=== PATIENT | male | born 1955 | race Caucasian/White ===

== ENCOUNTER 2017-08-22 10:45 | Inpatient (IN) | payer MEDICARE, OTHER ==
[2017-08-22] MEDS ORDERED: SODIUM CHLORIDE 0.9% 1,000 ML IV STA ×2 (11:32)
[2017-08-22] MEDS ORDERED: AZITHROMYCIN 500 MG in DEXTROSE 5% IN WATER 250 ML IVPB STA ×2 (11:32)
[2017-08-22] MEDS ORDERED: IPRATROPIUM-ALBUTEROL 3 ML NEB INHALATION STA (11:32)
--- NOTE | 2017-08-22 12:18 | ED ---
General Adult HPI - General Chief complaint: Shortness of Breath Stated complaint: Pneumonia Time Seen by Provider: 08/22/17 11:08 Source: patient, RN notes reviewed, old records reviewed Mode of arrival: ambulatory Limitations: no limitations - History of Present Illness Initial comments: This is a 62-year-old male the ER for evaluation. Presents today for evaluation regarding shortness of breath. Significant increasing shortness of breath 2 days with chronic cough. Patient states his oxygen level is low at home as he just has his oxygen is been low as 84%. Patient also having occasional pain. He has no known travel history, positive fever at home which shows. In that again significant shortness of breath. No known sick contacts again no travel history - Related Data Home Medications Medication Instructions Recorded Confirmed Atorvastatin [Lipitor] 80 mg PO HS 08/22/17 08/22/17 Carboxymethylcellulose Sodium 15 ml OP TID 08/22/17 08/22/17 [Refresh Tears] Chlorthalidone [Hygroton] 25 mg PO DAILY 08/22/17 08/22/17 Cyanocobalamin (Vitamin B-12) 5,000 mcg PO DAILY 08/22/17 08/22/17 [Vitamin B12] Cyclobenzaprine [Flexeril] 10 mg PO HS PRN 08/22/17 08/22/17 DULoxetine HCL [Cymbalta] 30 mg PO HS 08/22/17 08/22/17 Meloxicam 15 mg PO DAILY 08/22/17 08/22/17 Metaxalone [Skelaxin] 800 mg PO BID 08/22/17 08/22/17 Pantoprazole [Protonix] 40 mg PO BID 08/22/17 08/22/17 Tamsulosin [Flomax] 0.8 mg PO DAILY 08/22/17 08/22/17 cycloSPORINE 0.05% OPHTH SOLN 1 applicator BOTH EYES Q12H 08/22/17 08/22/17 [Restasis] Allergies Allergy/AdvReac Type Severity Reaction Status Date / Time No Known Allergies Allergy Verified 08/22/17 11:30 Review of Systems ROS Statement: Those systems with pertinent positive or pertinent negative responses have been documented in the HPI. ROS Other: All systems not noted in ROS Statement are negative. Past Medical History Past Medical History: Osteoarthritis (OA) Additional Past Medical History / Comment(s): ulcerative colitis enlarged prostate fx hip Past Surgical History: Orthopedic Surgery Additional Past Surgical History / Comment(s): knee x5 Past Psychological History: No Psychological Hx Reported Smoking Status: Former smoker Past Alcohol Use History: None Reported Past Drug Use History: None Reported General Exam Limitations: no limitations General appearance: alert, in no apparent distress Head exam: Present: atraumatic, normocephalic, normal inspection Eye exam: Present: normal appearance, PERRL, EOMI. Absent: scleral icterus, conjunctival injection, periorbital swelling ENT exam: Present: normal exam, mucous membranes moist Neck exam: Present: normal inspection. Absent: tenderness, meningismus, lymphadenopathy Respiratory exam: Present: normal lung sounds bilaterally, rales, rhonchi, decreased breath sounds, prolonged expiratory. Absent: respiratory distress, wheezes, stridor Cardiovascular Exam: Present: regular rate, normal rhythm, normal heart sounds. Absent: systolic murmur, diastolic murmur, rubs, gallop, clicks GI/Abdominal exam: Present: soft, normal bowel sounds. Absent: distended, tenderness, guarding, rebound, rigid Extremities exam: Present: normal inspection, full ROM, normal capillary refill. Absent: tenderness, pedal edema, joint swelling, calf tenderness Back exam: Present: normal inspection Neurological exam: Present: alert, oriented X3, CN II-XII intact Psychiatric exam: Present: normal affect, normal mood Skin exam: Present: warm, dry, intact, normal color. Absent: rash Course Vital Signs 08/22/17 08/22/17 08/22/17 11:02 12:32 12:45 Temperature 98.4 F Pulse Rate 82 76 78 Respiratory 18 Rate Blood Pressure 108/72 O2 Sat by Pulse 96 Oximetry - Reevaluation(s) Reevaluation #1: 08/22/17 13:08 Patient does complain of significant shortness of breath especially still with exertion despite breathing treatment here Medical Decision Making - Medical Decision Making 62 male the ER for evaluation, positive pneumonia. Patient be admitted for IV antibiotics, monitoring of cardiopulmonary state. - Radiology Data Radiology results: report reviewed (Chest x-ray significant for multilobar pneumonia right-sided), image reviewed Disposition Clinical Impression: Community acquired pneumonia Disposition: ADMITTED IP TO THIS HOSP Condition: Good Is patient prescribed a controlled substance at d/c from ED?: No Referrals: Low Joshua MD [Primary Care Provider] - 1-2 days
[2017-08-22] MEDS ORDERED: cefTRIAXone IN SWFI 1,000 MG/10 ML SYRINGE IVP STA (13:05)
[2017-08-22] MEDS ORDERED: PNEUMONIA PROTOCOL UTILIZED 1 EACH MISC PO PRN (13:05)
[2017-08-22 13:24] LABS: Basophils % (A) 0 %; Eosinophils % (A) 0 %; HCT 38.5 % (39.0-53.0); HGB 13.2 gm/dL (13.0-17.5); Lymphocytes % (A) 34 %; MCH 31.8 pg (25.0-35.0); MCHC 34.3 g/dL (31.0-37.0); MCV 92.6 fL (80.0-100.0); Mean Platelet Volume 6.8; Monocytes # (A) 0.6 k/uL (0-1.0); Monocytes % (A) 4 %; Neutrophils # (A) 8.2 k/uL (1.3-7.7); Neutrophils % (A) 58 %; Platelet Count 289 k/uL (150-450); RBC 4.16 m/uL (4.30-5.90); RDW 13.3 % (11.5-15.5); WBC 14.1 k/uL (3.8-10.6)
[2017-08-22 13:34] LABS: ALT 53 U/L (21-72); AST 40 U/L (17-59); Albumin 3.9 g/dL (3.5-5.0); Alkaline Phosphatase 95 U/L (38-126); Anion Gap 10 mmol/L; Blood Urea Nitrogen 8 mg/dL (9-20); Calcium 8.8 mg/dL (8.4-10.2); Carbon Dioxide 26 mmol/L (22-30); Chloride 105 mmol/L (98-107); Glucose 92 mg/dL (74-99); Magnesium 1.7 mg/dL (1.6-2.3); Sodium 141 mmol/L (137-145); Total Bilirubin 0.7 mg/dL (0.2-1.3); Total Protein 6.7 g/dL (6.3-8.2)
[2017-08-22] MEDS: SODIUM CHLORIDE 0.9% 1,000 ML IV SCH (13:44)
[2017-08-22 13:51] LABS: Lymphocytes # (A) 4.8 k/uL (1.0-4.8)
[2017-08-22 13:54] LABS: D-Dimer 1.08 mg/L FEU (<0.60); INR 1.1 (<1.2); Partial Thromboplastin Time 22.3 sec (22.0-30.0); Prothrombin Time 10.4 sec (9.0-12.0)
[2017-08-22 14:04] LABS: Creatine Kinase MB 1.2 ng/mL (0.0-2.4); Troponin I 0.013 ng/mL (0.000-0.034)
[2017-08-22] MEDS: IPRATROPIUM-ALBUTEROL 3 ML NEB INHALATION SCH ×2 (15:41→19:40)
[2017-08-22] MEDS ORDERED: CYCLOBENZAPRINE 10 MG TAB PO PRN (16:58)
[2017-08-22] MEDS ORDERED: cycloSPORINE 0.05% OPHTH 0.4 ML DROPERETTE BOTH EYES SCH (17:00)
[2017-08-22] MEDS ORDERED: HYDROcodone/APAP 5-325MG 1 EACH TAB PO PRN (17:25)
[2017-08-22] MEDS ORDERED: NALOXONE 0.4 MG/ML 1 ML VIAL IV PRN (17:25)
--- NOTE | 2017-08-22 17:27 | P.HPIM ---
History of Present Illness H&P Date: 08/22/17 Chief Complaint: Hemoptysis Patient is a 62-year-old male to past medical history of ulcerative colitis, sleep apnea, arthritis, and BPH presented to the emergency department at the direction of Dr. Joshua for hemoptysis and abnormal chest x-ray. In the ER he underwent an extensive evaluation. He was found to have clinical signs within normal limits but his white blood cell count was elevated at 14. His chest x-ray from Dr. Joshua's office was reviewed and was consistent with right-sided pneumonia tracheal deviation. He was started on IV fluids Zithromax , Rocephin, and was admitted to the general medical floor for further monitoring and care. Patient seen and examined at bedside. He states that he has been feeling fatigued and having shortness of breath with exertion for the last week. He then developed hemoptysis last night. He states that he was coughing a lot last night and then started coughing up blood. He believes he coughed up 5-6 teaspoons of blood. He checked his oxygen was 86%. His pulse oximeter. He felt he was choking every heavyweight flattening therefore set up. He also had a feeling of chest heaviness when laying flat but not sitting forward. He states that he got dizzy one time after spitting into the sink but recovered in 10-15 seconds. He did not pass out. He has a history of back problems and is scheduled to get an MRI shortly. His mother had mesothelioma and father of lung cancer. He has a prior history of tobacco abuse but has not smoked in the last 20 years. He worked in a machine shop and multiple factories. He denies any decreased appetite or unexpected weight loss. He denies any fevers or chills. He denies any nausea, vomiting, or diarrhea. He did recently suffer 6 days of diarrhea but that has subsided. He denies any chest pain. He has been getting intermittent edema in his lower extremities off the last 6-7 years and this has remained unchanged. Review of Systems Pertinent positives and negatives as discussed in HPI, a complete review of systems was performed and all other systems are negative. Past Medical History Past Medical History: GERD/Reflux, Hyperlipidemia, Osteoarthritis (OA), Prostate Disorder, Sleep Apnea/CPAP/BIPAP Additional Past Medical History / Comment(s): ulcerative colitis enlarged prostate fx rt hip, murmur as child, osteoporosis, past fx sternum/pelvis, lower back pain. had a pna vaccine in past not sure of date. History of Any Multi-Drug Resistant Organisms: None Reported Past Surgical History: Orthopedic Surgery Additional Past Surgical History / Comment(s): rt knee total 5 sx(scope/ cartilage and has a staple, lt knee x2 arthrosocpies, rt hand platic sx/skin grafting,colonoscopy, rt cataracts Past Anesthesia/Blood Transfusion Reactions: No Reported Reaction Additional Past Anesthesia/Blood Transfusion Reaction / Comment(s): lives in house with family. drives, has cane and cpap Smoking Status: Former smoker Past Alcohol Use History: None Reported Past Drug Use History: None Reported Additional History: Lives with his sister and [id number], uses a cane and bad days, independent in most ADLs watches his granddaughter. - Past Family History Mother Family Medical History: Diabetes Mellitus Additional Family Medical History / Comment(s): from mesothelioma Father Family Medical History: Cancer Additional Family Medical History / Comment(s): lung cancer and ?dm. dads brother had esophageal cancer Medications and Allergies Home Medications Medication Instructions Recorded Confirmed Type Atorvastatin [Lipitor] 80 mg PO HS 08/22/17 08/22/17 History Carboxymethylcellulose Sodium 15 ml OP TID 08/22/17 08/22/17 History [Refresh Tears] Chlorthalidone [Hygroton] 25 mg PO DAILY 08/22/17 08/22/17 History Cyanocobalamin (Vitamin B-12) 5,000 mcg PO DAILY 08/22/17 08/22/17 History [Vitamin B12] Cyclobenzaprine [Flexeril] 10 mg PO HS PRN 08/22/17 08/22/17 History DULoxetine HCL [Cymbalta] 30 mg PO HS 08/22/17 08/22/17 History Meloxicam 15 mg PO DAILY 08/22/17 08/22/17 History Metaxalone [Skelaxin] 800 mg PO BID 08/22/17 08/22/17 History Pantoprazole [Protonix] 40 mg PO BID 08/22/17 08/22/17 History Tamsulosin [Flomax] 0.8 mg PO DAILY 08/22/17 08/22/17 History cycloSPORINE 0.05% OPHTH SOLN 1 applicator BOTH EYES Q12H 08/22/17 08/22/17 History [Restasis] Allergies Allergy/AdvReac Type Severity Reaction Status Date / Time No Known Allergies Allergy Verified 08/22/17 11:30 Physical Exam Osteopathic Statement: *. No significant issues noted on an osteopathic structural exam other than those noted in the History and Physical/Consult. Vitals: Vital Signs Temp Pulse Pulse Resp BP BP Pulse Ox 08/22/17 15:56 82 08/22/17 15:42 80 96 08/22/17 15:37 98.4 F 74 17 126/74 96 08/22/17 15:01 98.2 F 73 18 119/63 95 08/22/17 13:33 98.2 F 89 18 120/75 96 08/22/17 12:45 78 08/22/17 12:32 76 08/22/17 11:02 98.4 F 82 18 108/72 96 Intake and Output 08/22/17 08/22/17 08/22/17 06:59 14:59 22:59 Other: Weight 114.305 kg General: Ill-appearing, no distress, appears at stated age, Obese Derm: no unusual rashes/lesions no unusual ecchymoses, warm, dry Head: atraumatic, normocephalic, symmetric Eyes: EOMI, no lid lag, anicteric sclera, pupils equal round reactive to light ENT: Nose and ears atraumatic, no thrush, no pharyngeal erythema Neck: No thyromegaly, no cervical lymphadenopathy, trachea midline, supple Mouth: no lip lesion, mucus membranes moist Cardiovascular: S1S2 regular with murmur, positive posterior tibial pulse bilateral, 2+ edema b/l LE, capillary refill less than 2 seconds Lungs: + rhonchi right base , no accessory muscle use Abdominal: soft, nontender to palpation, no guarding, no appreciable organomegaly, normal bowel sounds Ext: no gross muscle atrophy, muscle strength 5 out of 5 in all 4 extremities grossly, no contractures, Neuro: CN II-XI grossly intact, light touch intact all 4 extremities, finger to nose within normal limits, Psych: Alert, oriented, appropriate affect Results CBC & Chem 7: 08/22/17 13:10 08/22/17 13:10 Labs: Abnormal Lab Results - Last 24 Hours (Table) 08/22/17 08/22/17 08/22/17 Range/Units 13:10 13:10 13:10 WBC 14.1 H (3.8-10.6) k/uL RBC 4.16 L (4.30-5.90) m/uL Hct 38.5 L (39.0-53.0) % Neutrophils # 8.2 H (1.3-7.7) k/uL D-Dimer 1.08 H (<0.60) mg/L FEU BUN 8 L (9-20) mg/dL Comments: Chest x-ray reviewed by myself shows right sided hilar infiltrate with tracheal deviation to the right and possible volume loss. Thrombosis Risk Factor Assmnt - DVT/VTE Prophylaxis DVT/VTE Prophylaxis: Pharmacologic Prophylaxis ordered - Choose All That Apply Any of the Below Risk Factors Present?: Yes Each Factor Represents 1 point: Obesity (BMI >25) Other Risk Factors: Yes Each Risk Factor Represents 2 Points: Age 61-74 years Thrombosis Risk Factor Assessment Total Risk Factor Score: 3 Thrombosis Risk Factor Assessment Level: Moderate Risk Assessment and Plan Assessment: Pneumonia with hemoptysis -Continue with Zithromax. Switch from Rocephin to Zosyn for anaerobic coverage with concern for possible postobstructive pneumonia. -Check CAT scan chest with contrast to rule out mass -IV fluids -Sputum culture -Bronchodilators -Pulmonary hygiene - with lower extremity edema will also check echo Morbid obesity -Outpatient structured weight loss REAL - CPAP at night arthritis - hold mobic tonight with contrast - as need norco resume - flexaril and skelaxin BPH - flomax The patient is admitted with an anticipated greater than 2 midnight stay for evaluation of Pneumonia. Surrogate decision-maker: Saurabh briceno CODE STATUS:Full DVT prophylaxis: Lovenox Discussed with: Patient, Nursing Anticipated discharge date: 2-[address]: home A total of 65 minutes was spent on the care of this complex patient more than 50 % of the time was spent in counseling and care coordination.
--- NOTE | 2017-08-22 17:33 | CT ---
EXAMINATION TYPE: CT chest wo con DATE OF EXAM: 08/22/2017 COMPARISON: NONE HISTORY: pneumonia CT DLP: 591.3 mGycm. Automated Exposure Control for Dose Reduction was Utilized. TECHNIQUE: CT scan of the thorax is performed without IV contrast. FINDINGS: . There is diffuse groundglass type interstitial infiltrate in the right lung. This is predominantly in the mid lung field. There is minimal reticular interstitial density in the left lung. There is no evidence of a pulmonary mass. There is atherosclerotic vascular calcification. There is no pericardia l effusion. There is no pleural effusion. I see no mediastinal adenopathy. IMPRESSION: Diffuse right side pulmonary interstitial pneumonia. 20% anterior wedging noted of T12 th at is probably old. There is 10% depression of T8.
[2017-08-22] MEDS: CYCLOBENZAPRINE 10 MG TAB PO SCH (20:37)
[2017-08-22] MEDS: PANTOPRAZOLE 40 MG TABLET PO SCH (20:37)
[2017-08-22] MEDS: ATORVASTATIN 80 MG TAB PO SCH (20:37)
[2017-08-22] MEDS: cycloSPORINE 0.05% OPHTH 0.4 ML DROPERETTE BOTH EYES SCH (20:38)
[2017-08-22] MEDS: DULoxetine HCL 30 MG CAPSULE.DR PO SCH (20:38)
[2017-08-22] MEDS: ARTIFICIAL TEARS-HYPROMELLOSE DROPS 15 ML BTL BOTH EYES SCH (20:39)
[2017-08-23] MEDS: PIPERACILLIN-TAZOBACTAM 3.375 GM in DEXTROSE/WATER 1 50ML.BAG IVPB SCH ×4 (00:28→23:25)
[2017-08-23] MEDS: SODIUM CHLORIDE 0.9% 1,000 ML IV SCH ×2 (00:31→08:03)
[2017-08-23] MEDS: IPRATROPIUM-ALBUTEROL 3 ML NEB INHALATION SCH ×4 (07:48→19:28)
[2017-08-23] MEDS: AZITHROMYCIN 500 MG in DEXTROSE 5% IN WATER 250 ML IVPB SCH ×2 (08:01)
[2017-08-23] MEDS: ENOXAPARIN 40 MG/0.4 ML SYRINGE SQ SCH (08:02)
[2017-08-23] MEDS: cycloSPORINE 0.05% OPHTH 0.4 ML DROPERETTE BOTH EYES SCH ×2 (08:02→20:23)
[2017-08-23] MEDS: PANTOPRAZOLE 40 MG TABLET PO SCH ×2 (08:02→20:23)
[2017-08-23] MEDS: CYCLOBENZAPRINE 10 MG TAB PO SCH ×2 (08:02→20:23)
[2017-08-23] MEDS: TAMSULOSIN 0.4 MG CAP.ER.24H PO SCH (08:02)
[2017-08-23] MEDS: CYANOCOBALAMIN 500 MCG TAB PO SCH (08:03)
[2017-08-23] MEDS: ARTIFICIAL TEARS-HYPROMELLOSE DROPS 15 ML BTL BOTH EYES SCH ×3 (08:03→20:23)
[2017-08-23 08:07] LABS: HGB 11.5 gm/dL (13.0-17.5); Mean Platelet Volume 7.1; Platelet Count 284 k/uL (150-450); RBC 3.72 m/uL (4.30-5.90); RDW 13.4 % (11.5-15.5); WBC 8.6 k/uL (3.8-10.6)
[2017-08-23 08:33] LABS: ALT 46 U/L (21-72); AST 26 U/L (17-59); Albumin 3.1 g/dL (3.5-5.0); Alkaline Phosphatase 74 U/L (38-126); Anion Gap 8 mmol/L; Blood Urea Nitrogen 6 mg/dL (9-20); Calcium 8.3 mg/dL (8.4-10.2); Carbon Dioxide 30 mmol/L (22-30); Chloride 104 mmol/L (98-107); Glucose 94 mg/dL (74-99); Potassium 3.2 mmol/L (3.5-5.1); Sodium 142 mmol/L (137-145); Total Bilirubin 0.7 mg/dL (0.2-1.3); Total Protein 5.5 g/dL (6.3-8.2)
[2017-08-23] MEDS ORDERED: cefTRIAXone IN SWFI 1,000 MG/10 ML SYRINGE IVP SCH (09:00)
[2017-08-23] MEDS ORDERED: CHLORTHALIDONE 25 MG TAB PO SCH (09:00)
--- NOTE | 2017-08-23 09:28 | XR ---
EXAMINATION TYPE: XR chest 2V DATE OF EXAM: 08/23/2017 COMPARISON: CT chest 08/22/2017 HISTORY: Pneumonia TECHNIQUE: Frontal and lateral views of the chest are obtained. FINDINGS: Patient is rotated. Groundglass opacity seen on chest CT is again noted within the right l brando. There is no pneumothorax or pleural effusion. Heart size is stable, patient is rotated. Pulmonar y artery is prominent, correlate for possible pulmonary artery hypertension. Coronary artery calcific ations seen on CT not as well seen on plain film. IMPRESSION: Airspace disease right lung, correlate for pulmonary artery hypertension.
[2017-08-23] MEDS: POTASSIUM CHLORIDE ER 20 MEQ TAB.ER PO SCH ×2 (12:27→14:21)
--- NOTE | 2017-08-23 19:35 | PN ---
PROGRESS NOTE DATE OF SERVICE: 08/23/2017 PRESENTING COMPLAINT: Hemoptysis. INTERVAL HISTORY: This patient presented with 1 week of not feeling well, some shortness of breath, tired, run down, easily short of breath and coughing up bright red blood. CT scan and chest x-ray showed infiltrate on the right side. The patient does feel better after getting antibiotics, did tolerate some diet, still did cough up a little bit more blood. There is no weight loss or loss of appetite. REVIEW OF SYSTEMS: Done for constitutional, cardiovascular, GI, pulmonary; relevant findings as above. CURRENT MEDICATIONS: Include: 1. Azithromycin and. 2. IV Zosyn. EXAMINATION: Afebrile, pulse 72, respirations 16, blood pressure 97/62, pulse ox 96% on room air. GENERAL APPEARANCE: Well-built, BMI 38.3, sitting up, not in distress. EYES: Pupils equal. Conjunctivae normal. HEENT: External nose and ears normal. Oral cavity normal. NECK: JVD not raised. Mass not palpable. RESPIRATORY: Effort increased. Some bronchial breathing on the right side. CARDIOVASCULAR: First and second sounds normal. No edema. ABDOMEN: Soft, nontender. Liver and spleen not palpable. PSYCHIATRY: Alert and oriented x3. Mood and affect were normal. INVESTIGATIONS: White count 8.6. Potassium 3.2, BUN 6, creatinine 0.78. Chest x-ray showing airspace disease on the right side. ASSESSMENT: 1. Right-sided severe pneumonia with the patient with acute presentation of 5-6 days with hemoptysis and patient is responding to antibiotics. 2. Obesity; BMI 38.3. 3. Gastroesophageal reflux disease. 4. Hyperlipidemia. 5. Primary osteoarthritis. 6. Benign prostatic hypertrophy. 7. Obstructive sleep apnea, uses a CPAP machine. 8. Chronic ulcerative colitis. PLAN: Patient to continue with current antibiotics. Home medications are resumed. Care was discussed with the patient. Questions were answered. MMODL / IJN: [id number] /
[2017-08-23] MEDS: ATORVASTATIN 80 MG TAB PO SCH (20:23)
[2017-08-23] MEDS: DULoxetine HCL 30 MG CAPSULE.DR PO SCH (20:23)
--- NOTE | 2017-08-23 21:57 | P.CNPUL ---
History of Present Illness Consult date: 08/23/17 Reason for consult: dyspnea, cough, pneumonia, pulmonary fibrosis, obstructive sleep apnea Chief complaint: Cough shortness of breath with new onset hemoptysis History of present illness: 62-year-old male seen eval reexamined on fourth floor this patient sees Dr. Joshua for primary care activity he has not been feeling well for the last 1 week with increased shortness of breath intermittent dry cough one day prior to coming hospital patient has more coughing than usual has been evaluated by primary care provider a chest x-ray was seen which was noted to right-sided pneumonia patient was advised to be seen and evaluated in emergency department at that time he had the one day history of the coughing streak and clumps of blood he has about 6 teaspoon of blood, however since admission and after receiving antibiotic that has improved significantly on a few streaks of blood has been noted no active bleeding has been identified, patient does feel short of breath but slightly better now as he is getting antibiotics. His significant past medical history of ulcerative colitis, sleep apnea, arthritis, and BPH, today's white cell count is down to 8000 however his white blood cell count was elevated at 14. His chest x-ray from Dr. Joshua's office suggestive of right-sided pneumonia tracheal deviation. He was started on IV fluids Zithromax, Rocephin, and was admitted to the general medical floor for further monitoring and care. His mother had mesothelioma and father of lung cancer. He has a prior history of tobacco abuse but has not smoked in the last 20 years. He worked in a machine shop and multiple factories. He denies any decreased appetite or unexpected weight loss. He denies any fevers or chills. He denies any nausea, vomiting, or diarrhea. He did recently suffer 6 days of diarrhea but that has subsided. He denies any chest pain. He has been getting intermittent edema in his lower extremities off the last 6-7 years and this has remained unchanged. Past Medical History Past Medical History: GERD/Reflux, Hyperlipidemia, Osteoarthritis (OA), Prostate Disorder, Sleep Apnea/CPAP/BIPAP Additional Past Medical History / Comment(s): ulcerative colitis enlarged prostate fx rt hip, murmur as child, osteoporosis, past fx sternum/pelvis, lower back pain. had a pna vaccine in past not sure of date. History of Any Multi-Drug Resistant Organisms: None Reported Past Surgical History: Orthopedic Surgery Additional Past Surgical History / Comment(s): rt knee total 5 sx(scope/ cartilage and has a staple, lt knee x2 arthrosocpies, rt hand platic sx/skin grafting,colonoscopy, rt cataracts Past Anesthesia/Blood Transfusion Reactions: No Reported Reaction Additional Past Anesthesia/Blood Transfusion Reaction / Comment(s): lives in house with family. drives, has cane and cpap Smoking Status: Former smoker Past Alcohol Use History: None Reported Past Drug Use History: None Reported - Past Family History Mother Family Medical History: Diabetes Mellitus Additional Family Medical History / Comment(s): from mesothelioma Father Family Medical History: Cancer Additional Family Medical History / Comment(s): lung cancer and ?dm. dads brother had esophageal cancer Medications and Allergies Home Medications Medication Instructions Recorded Confirmed Type Atorvastatin [Lipitor] 80 mg PO HS 08/22/17 08/22/17 History Carboxymethylcellulose Sodium 15 ml OP TID 08/22/17 08/22/17 History [Refresh Tears] Chlorthalidone [Hygroton] 25 mg PO DAILY 08/22/17 08/22/17 History Cyanocobalamin (Vitamin B-12) 5,000 mcg PO DAILY 08/22/17 08/22/17 History [Vitamin B12] Cyclobenzaprine [Flexeril] 10 mg PO HS PRN 08/22/17 08/22/17 History DULoxetine HCL [Cymbalta] 30 mg PO HS 08/22/17 08/22/17 History Meloxicam 15 mg PO DAILY 08/22/17 08/22/17 History Metaxalone [Skelaxin] 800 mg PO BID 08/22/17 08/22/17 History Pantoprazole [Protonix] 40 mg PO BID 08/22/17 08/22/17 History Tamsulosin [Flomax] 0.8 mg PO DAILY 08/22/17 08/22/17 History cycloSPORINE 0.05% OPHTH SOLN 1 applicator BOTH EYES Q12H 08/22/17 08/22/17 History [Restasis] Allergies Allergy/AdvReac Type Severity Reaction Status Date / Time No Known Allergies Allergy Verified 08/22/17 11:30 Physical Exam Vitals: Vital Signs Temp Pulse Pulse Resp BP Pulse Ox 08/23/17 19:44 82 08/23/17 19:29 82 08/23/17 16:25 80 08/23/17 16:13 80 08/23/17 15:00 97.3 F L 72 16 97/62 96 08/23/17 11:56 82 08/23/17 11:46 80 08/23/17 07:59 76 08/23/17 07:48 74 94 L 08/23/17 05:56 98.3 F 71 18 113/72 90 L 08/22/17 23:00 99.1 F 74 16 99/61 94 L Intake and Output 08/23/17 08/23/17 08/23/17 06:59 14:59 22:59 Intake Total 1100 Balance 1100 Intake: IV 1100 Azithromycin 500 mg In 250 Dextrose 5% in Water 250 ml @ 125 mls/hr IVPB DAILY [facility] Rx#:[id number] Piperacillin-Tazobactam 3 50 .375 gm In Dextrose/Water 1 50ml.bag @ 12.5 mls/hr IVPB Q8HR [facility] Rx#: [id number] Sodium Chloride 0.9% 1, 800 000 ml @ 100 mls/hr IV . Q10H [facility] Rx#:[id number] Other: # Voids 2 2 1 # Bowel Movements 0 - Constitutional General appearance: cooperative, disheveled, mild distress, morbidly obese - EENT Eyes: EOMI, PERRLA, normal appearance Ears: bilateral: normal - Respiratory Respiratory: right: rales (Predominantly in the bases appears to be more of a dry), rhonchi (Expiratory), bilateral: diminished, wheezing (Expiratory on forced expiration), prolonged expiration, negative: CTA, dullness - Cardiovascular Rhythm: regular Heart sounds: normal: S1, S2 - Gastrointestinal General gastrointestinal: decreased bowel sounds, distended, soft - Integumentary Integumentary: normal, normal turgor - Neurologic Neurologic: CNII-XII intact - Musculoskeletal Musculoskeletal: gait normal, generalized weakness, strength equal bilaterally - Psychiatric Psychiatric: A&O x's 3, appropriate affect, intact judgment & insight Results - Laboratory Findings CBC and BMP: 08/23/17 07:51 08/23/17 07:51 PT/INR, D-dimer PT 10.4 sec (9.0-12.0) 08/22/17 13:10 INR 1.1 (<1.2) 08/22/17 13:10 D-Dimer 1.08 mg/L FEU (<0.60) H 08/22/17 13:10 Abnormal lab findings: Abnormal Labs 08/22/17 08/22/17 08/22/17 13:10 13:10 13:10 WBC 14.1 H RBC 4.16 L Hgb Hct 38.5 L Neutrophils # 8.2 H D-Dimer 1.08 H Potassium BUN 8 L Calcium Total Protein Albumin 08/23/17 08/23/17 07:51 07:51 WBC RBC 3.72 L Hgb 11.5 L Hct 35.0 L Neutrophils # D-Dimer Potassium 3.2 L BUN 6 L Calcium 8.3 L Total Protein 5.5 L Albumin 3.1 L - Diagnostic Findings Chest x-ray: report reviewed, image reviewed CT scan - chest: report reviewed, image reviewed (Predominantly large right- sided interstitial infiltrates are seen with a differential diagnosis of interstitial pneumonia worse is infiltrate related to hemoptysis ) Assessment and Plan Assessment: Acute hypoxic respirator failure Right-sided pneumonia Hemoptysis likely related to airway inflammation and pneumonia Sleep disorder breathing and sleep apnea Ulcerative colitis Hypokalemia Morbid obesity Plan: Gentle rehydration Broad-spectrum antibiotics Sputum for Gram stain and culture IV steroids DVT and peptic ulcer disease prophylaxis Patient would likely need a bronchoscopy will consider doing it on outpatient basis if no active hemoptysis seen during hospitalization Further recommendations pending plan of care as per clinical response of the patient Time with Patient: Greater than 30
[2017-08-24 07:31] VITALS: RESP 16
[2017-08-24] MEDS: IPRATROPIUM-ALBUTEROL 3 ML NEB INHALATION SCH ×4 (07:57→20:08)
[2017-08-24] MEDS: PIPERACILLIN-TAZOBACTAM 3.375 GM in DEXTROSE/WATER 1 50ML.BAG IVPB SCH ×2 (08:04→15:38)
[2017-08-24] MEDS: AZITHROMYCIN 500 MG in DEXTROSE 5% IN WATER 250 ML IVPB SCH ×2 (08:05)
[2017-08-24] MEDS: PANTOPRAZOLE 40 MG TABLET PO SCH ×2 (08:05→20:59)
[2017-08-24] MEDS: methylPREDNISolone SOD SUCCI 40 MG/ML 1 ML VIAL IV SCH ×2 (08:05→20:58)
[2017-08-24] MEDS: ENOXAPARIN 40 MG/0.4 ML SYRINGE SQ SCH (08:05)
[2017-08-24] MEDS: TAMSULOSIN 0.4 MG CAP.ER.24H PO SCH (08:05)
[2017-08-24] MEDS: cycloSPORINE 0.05% OPHTH 0.4 ML DROPERETTE BOTH EYES SCH ×2 (08:05→20:59)
[2017-08-24] MEDS: CYCLOBENZAPRINE 10 MG TAB PO SCH ×2 (08:05→20:59)
[2017-08-24] MEDS: CYANOCOBALAMIN 500 MCG TAB PO SCH (08:06)
[2017-08-24] MEDS: ARTIFICIAL TEARS-HYPROMELLOSE DROPS 15 ML BTL BOTH EYES SCH ×3 (08:07→21:03)
--- NOTE | 2017-08-24 09:56 | P.PN ---
Subjective Progress Note Date: 08/24/17 Principal diagnosis: Right-sided community-acquired pneumonia, hemoptysis related to pneumonia, ulcerative colitis, sleep disorder breathing and sleep apnea 62-year-old male seen and evaluated examined in follow-up for right-sided pneumonia and admitted for hemoptysis few streaks of blood were noted yesterday morning since then patient does not have any more active bleeding respiratory status has improved significantly have discussed with patient at length about options of doing bronchoscopy while he is hospitalized for outpatient he wants to go home and finish up his antibiotics and breathing treatments as well as the finish tapering dose of steroid and wants to do bronchoscopy as outpatient 62-year-old male seen eval reexamined on fourth floor this patient sees Dr. Joshua for primary care activity he has not been feeling well for the last 1 week with increased shortness of breath intermittent dry cough one day prior to coming hospital patient has more coughing than usual has been evaluated by primary care provider a chest x-ray was seen which was noted to right-sided pneumonia patient was advised to be seen and evaluated in emergency department at that time he had the one day history of the coughing streak and clumps of blood he has about 6 teaspoon of blood, however since admission and after receiving antibiotic that has improved significantly on a few streaks of blood has been noted no active bleeding has been identified, patient does feel short of breath but slightly better now as he is getting antibiotics. His significant past medical history of ulcerative colitis, sleep apnea, arthritis, and BPH, today's white cell count is down to 8000 however his white blood cell count was elevated at 14. His chest x-ray from Dr. Joshua's office suggestive of right-sided pneumonia tracheal deviation. He was started on IV fluids Zithromax, Rocephin, and was admitted to the general medical floor for further monitoring and care. His mother had mesothelioma and father of lung cancer. He has a prior history of tobacco abuse but has not smoked in the last 20 years. He worked in a machine shop and multiple factories. He denies any decreased appetite or unexpected weight loss. He denies any fevers or chills. He denies any nausea, vomiting, or diarrhea. He did recently suffer 6 days of diarrhea but that has subsided. He denies any chest pain. He has been getting intermittent edema in his lower extremities off the last 6-7 years and this has remained unchanged. Objective - Vital Signs Vital signs: Vital Signs Temp 97.4 F L 08/24/17 07:00 Pulse 72 08/24/17 08:07 Resp 16 08/24/17 07:00 BP 99/65 08/24/17 07:00 Pulse Ox 92 L 08/24/17 07:00 Intake & Output 08/23/17 08/24/17 08/24/17 18:59 06:59 18:59 Intake Total 1100 Balance 1100 Weight 114.305 kg Intake: IV 1100 Azithromycin 500 mg In 250 Dextrose 5% in Water 250 ml @ 125 mls/hr IVPB DAILY [facility] Rx#:[id number] Piperacillin-Tazobactam 3 50 .375 gm In Dextrose/Water 1 50ml.bag @ 12.5 mls/hr IVPB Q8HR [facility] Rx#: [id number] Sodium Chloride 0.9% 1, 800 000 ml @ 100 mls/hr IV . Q10H [facility] Rx#:[id number] Other: # Voids 2 1 # Bowel Movements 0 - Exam - Constitutional General appearance: cooperative, disheveled, mild distress, morbidly obese - EENT Eyes: EOMI, PERRLA, normal appearance Ears: bilateral: normal - Respiratory Respiratory: right: rales (Predominantly in the bases appears to be more of a dry), rhonchi (Expiratory), bilateral: diminished, wheezing (Expiratory on forced expiration), prolonged expiration, negative: CTA, dullness - Cardiovascular Rhythm: regular Heart sounds: normal: S1, S2 - Gastrointestinal General gastrointestinal: decreased bowel sounds, distended, soft - Integumentary Integumentary: normal, normal turgor - Neurologic Neurologic: CNII-XII intact - Musculoskeletal Musculoskeletal: gait normal, generalized weakness, strength equal bilaterally - Psychiatric Psychiatric: A&O x's 3, appropriate affect, intact judgment & insight - Labs CBC & Chem 7: 08/23/17 07:51 08/23/17 07:51 Labs: Microbiology - Last 24 Hours (Table) 08/22/17 22:14 Blood Culture - Preliminary Blood No Growth after 24 hours Assessment and Plan Assessment: Acute hypoxic respirator failure Right-sided pneumonia Hemoptysis likely related to airway inflammation and pneumonia Sleep disorder breathing and sleep apnea Ulcerative colitis Hypokalemia Morbid obesity Plan: Gentle rehydration Broad-spectrum antibiotics Sputum for Gram stain and culture IV steroids DVT and peptic ulcer disease prophylaxis Patient would likely need a bronchoscopy he wants to do it as outpatient will consider doing it on outpatient basis if no active hemoptysis seen during hospitalization Further recommendations pending plan of care as per clinical response of the patient Time with Patient: Greater than 30
[2017-08-24 12:07] LABS: ALT 47 U/L (21-72); AST 29 U/L (17-59); Albumin 3.9 g/dL (3.5-5.0); Alkaline Phosphatase 89 U/L (38-126); Anion Gap 12 mmol/L; Blood Urea Nitrogen 10 mg/dL (9-20); Carbon Dioxide 27 mmol/L (22-30); Chloride 102 mmol/L (98-107); Glucose 102 mg/dL (74-99); Potassium 3.4 mmol/L (3.5-5.1); Sodium 141 mmol/L (137-145); Total Bilirubin 0.8 mg/dL (0.2-1.3); Total Protein 6.7 g/dL (6.3-8.2)
[2017-08-24] MEDS: POTASSIUM CHLORIDE ER 20 MEQ TAB.ER PO SCH ×2 (12:36→14:01)
[2017-08-24] MEDS: DULoxetine HCL 30 MG CAPSULE.DR PO SCH (20:58)
[2017-08-24] MEDS: ATORVASTATIN 80 MG TAB PO SCH (20:59)
--- NOTE | 2017-08-24 21:52 | PN ---
PROGRESS NOTE DATE OF SERVICE: August 24, 2017. PRESENTING COMPLAINT: Hemoptysis. INTERVAL HISTORY: The patient presented with pneumonia felt to be causing hemoptysis. The patient did cough up some blood yesterday, not today. Feeling better. Cough is minimal. Appetite is actually getting better. The patient's significant other is at the bedside. The patient has been up to the hallway. REVIEW OF SYSTEMS: Done for constitutional, cardiovascular, GI, pulmonary and relevant findings as above. CURRENT MEDICATIONS: Reviewed that include Azithromycin and IV Zosyn. PHYSICAL EXAMINATION: VITAL SIGNS: Temperature 97.1, pulse 72, respirations 16, blood pressure 122/67, pulse ox 92% on room air. GENERAL APPEARANCE: Sitting up awake. EYES: Pupils equal. Conjunctivae normal. HEENT external appearance of nose and ears normal. Oral cavity normal. NECK: JVD not raised. Mass not palpable. RESPIRATORY: Effort increased. LUNGS: Some improved air entry. CARDIOVASCULAR: 1st and second sounds normal. No edema. ABDOMEN: Soft, nontender. Liver and spleen not palpable. PSYCHIATRY: Alert and oriented times three. Mood and affect is normal. INVESTIGATIONS: Potassium 3.4. ASSESSMENT: 1. Right-sided severe pneumonia with some clinical response causing hemoptysis. The patient will need a bronchoscopy as an outpatient. 2. Obesity; BMI 38.3. 3. Gastroesophageal reflux disease. 4. Hyperlipidemia. 5. Primary osteoarthritis. 6. Benign prostatic hypertrophy. 7. Obstructive sleep apnea uses CPAP machine. 8. Chronic ulcerative colitis. PLAN: Care was discussed at length with the patient and significant other at the bedside. Questions were answered. The patient is seen by Dr. Erendira Jimenez from Pulmonary. We will give patient another day of IV antibiotics and if continues to do well should be able to be discharged tomorrow with a plan to outpatient bronchoscopy. Care was discussed. MMODL / IJN: [id number] /
[2017-08-25] MEDS: PIPERACILLIN-TAZOBACTAM 3.375 GM in DEXTROSE/WATER 1 50ML.BAG IVPB SCH ×2 (00:19→11:37)
[2017-08-25 06:40] VITALS: BP 105/62; TEMP 97.7
[2017-08-25] MEDS: IPRATROPIUM-ALBUTEROL 3 ML NEB INHALATION SCH ×2 (08:03→11:19)
--- NOTE | 2017-08-25 08:15 | XR ---
EXAMINATION TYPE: XR chest 2V DATE OF EXAM: 08/25/2017 COMPARISON: 08/23/2017 HISTORY: 62-year-old male follow-up pneumonia TECHNIQUE: Frontal and lateral views FINDINGS: Heart normal size. Aorta within normal limits. Residual densities remain along the right hemithorax, improved from 08/23/2017. No pleural effusion or new consolidation. IMPRESSION: Residual airspace disease in the right lung, improving from 08/23/2017.
[2017-08-25] MEDS: ARTIFICIAL TEARS-HYPROMELLOSE DROPS 15 ML BTL BOTH EYES SCH (08:48)
[2017-08-25] MEDS: AZITHROMYCIN 500 MG in DEXTROSE 5% IN WATER 250 ML IVPB SCH ×2 (08:49)
[2017-08-25] MEDS: cycloSPORINE 0.05% OPHTH 0.4 ML DROPERETTE BOTH EYES SCH (08:50)
[2017-08-25] MEDS: ENOXAPARIN 40 MG/0.4 ML SYRINGE SQ SCH (08:50)
[2017-08-25] MEDS: CYCLOBENZAPRINE 10 MG TAB PO SCH (08:50)
[2017-08-25] MEDS: methylPREDNISolone SOD SUCCI 40 MG/ML 1 ML VIAL IV SCH (08:50)
[2017-08-25] MEDS: TAMSULOSIN 0.4 MG CAP.ER.24H PO SCH (08:51)
[2017-08-25] MEDS: PANTOPRAZOLE 40 MG TABLET PO SCH (08:51)
[2017-08-25 11:32] VITALS: PULSE 74
[2017-08-25] MEDS: CYANOCOBALAMIN 500 MCG TAB PO SCH (11:43)
--- NOTE | 2017-08-25 12:53 | P.PN ---
Subjective Progress Note Date: 08/25/17 Principal diagnosis: Right-sided community-acquired pneumonia, hemoptysis related to pneumonia, ulcerative colitis, sleep disorder breathing and sleep apnea 08/25/2017, patient seen eval examined during the rounds clinically patient has been doing well awake and alert breathing comfortably no hemoptysis is been seen patient is being possibly discharge on oral antibiotics and tapering steroids and follow up on outpatient setting so he can be scheduled for bronchoscopy care plan discussed with the primary service as well as patient at length 62-year-old male seen and evaluated examined in follow-up for right-sided pneumonia and admitted for hemoptysis few streaks of blood were noted yesterday morning since then patient does not have any more active bleeding respiratory status has improved significantly have discussed with patient at length about options of doing bronchoscopy while he is hospitalized for outpatient he wants to go home and finish up his antibiotics and breathing treatments as well as the finish tapering dose of steroid and wants to do bronchoscopy as outpatient 62-year-old male seen eval reexamined on fourth floor this patient sees Dr. Joshua for primary care activity he has not been feeling well for the last 1 week with increased shortness of breath intermittent dry cough one day prior to coming hospital patient has more coughing than usual has been evaluated by primary care provider a chest x-ray was seen which was noted to right-sided pneumonia patient was advised to be seen and evaluated in emergency department at that time he had the one day history of the coughing streak and clumps of blood he has about 6 teaspoon of blood, however since admission and after receiving antibiotic that has improved significantly on a few streaks of blood has been noted no active bleeding has been identified, patient does feel short of breath but slightly better now as he is getting antibiotics. His significant past medical history of ulcerative colitis, sleep apnea, arthritis, and BPH, today's white cell count is down to 8000 however his white blood cell count was elevated at 14. His chest x-ray from Dr. Johsua's office suggestive of right-sided pneumonia tracheal deviation. He was started on IV fluids Zithromax, Rocephin, and was admitted to the general medical floor for further monitoring and care. His mother had mesothelioma and father of lung cancer. He has a prior history of tobacco abuse but has not smoked in the last 20 years. He worked in a machine shop and multiple factories. He denies any decreased appetite or unexpected weight loss. He denies any fevers or chills. He denies any nausea, vomiting, or diarrhea. He did recently suffer 6 days of diarrhea but that has subsided. He denies any chest pain. He has been getting intermittent edema in his lower extremities off the last 6-7 years and this has remained unchanged. Objective - Vital Signs Vital signs: Vital Signs Temp 97.7 F 08/25/17 06:30 Pulse 74 08/25/17 11:30 Resp 16 08/25/17 06:30 BP 105/62 08/25/17 06:30 Pulse Ox 95 08/25/17 06:30 Intake & Output 08/24/17 08/25/17 08/25/17 18:59 06:59 18:59 Intake Total 850 Output Total 500 Balance 850 -500 Intake: IV 850 Piperacillin-Tazobactam 3 50 .375 gm In Dextrose/Water 1 50ml.bag @ 12.5 mls/hr IVPB Q8HR [facility] Rx#: [id number] Sodium Chloride 0.9% 1, 800 000 ml @ 100 mls/hr IV . Q10H [facility] Rx#:[id number] Output: Urine 500 Other: # Voids 3 1 - Exam - Constitutional General appearance: cooperative, disheveled, mild distress, morbidly obese - EENT Eyes: EOMI, PERRLA, normal appearance Ears: bilateral: normal - Respiratory Respiratory: right: rales (Predominantly in the bases appears to be more of a dry), rhonchi (Expiratory), bilateral: diminished, wheezing (Expiratory on forced expiration), prolonged expiration, negative: CTA, dullness - Cardiovascular Rhythm: regular Heart sounds: normal: S1, S2 - Gastrointestinal General gastrointestinal: decreased bowel sounds, distended, soft - Integumentary Integumentary: normal, normal turgor - Neurologic Neurologic: CNII-XII intact - Musculoskeletal Musculoskeletal: gait normal, generalized weakness, strength equal bilaterally - Psychiatric Psychiatric: A&O x's 3, appropriate affect, intact judgment & insight - Labs CBC & Chem 7: 08/23/17 07:51 08/24/17 16:49 Labs: Microbiology - Last 24 Hours (Table) 08/22/17 22:14 Blood Culture - Preliminary Blood No Growth after 48 hours Assessment and Plan Assessment: Acute hypoxic respirator failure Right-sided pneumonia Hemoptysis likely related to airway inflammation and pneumonia Sleep disorder breathing and sleep apnea Ulcerative colitis Hypokalemia Morbid obesity Plan: Gentle rehydration Broad-spectrum antibiotics Sputum for Gram stain and culture IV steroids DVT and peptic ulcer disease prophylaxis Patient would likely need a bronchoscopy he wants to do it as outpatient will consider doing it on outpatient basis if no active hemoptysis seen during hospitalization Further recommendations pending plan of care as per clinical response of the patient Time with Patient: Greater than 30
--- NOTE | 2017-08-26 07:30 | DS ---
DISCHARGE SUMMARY DATE OF ADMISSION: 08/22/17. DATE OF DISCHARGE: 08/25/17. FINAL DIAGNOSES: 1. Right-sided severe pneumonia suspect gram-negative organism causing hemoptysis, present on admission. 2. Obesity; BMI 38.3. 3. Gastroesophageal reflux disease. 4. Hyperlipidemia. 5. Primary osteoarthritis. 6. Benign prostatic hypertrophy. 7. Obstructive sleep apnea uses CPAP machine. 8. Chronic ulcerative colitis. CONSULTATION: Dr. Olivas from Pulmonary. HOSPITAL COURSE: This patient presented with respiratory symptoms coming on for about a week with hemoptysis, felt to be pneumonia. Responded very well to antibiotics. Infiltrate greatly improved by the time of discharge. Dr. Jimenez's contemplating a bronchoscopy as an outpatient. The patient's chest x-ray did improve by the time of discharge and the patient's CT scan of the chest did show pneumonia on the right side and 20% anterior wedging of the T12 and it is possibly old. PHYSICAL EXAMINATION: Lungs: Improved air entry. Cardiovascular: First and second sounds normal. Patient is up and about. DISCHARGE MEDICATIONS: 1. Lipitor 80 mg p.o. q.h.s. 2. 15 mL t.i.d. 3. Chlorthalidone 25 mg a day. 4. Vitamin B12 5000 mcg p.o. daily. 5. Flexeril 10 mg q.h.s. p.r.n. 6. Cymbalta 30 mg p.o. q.h.s. 7. Meloxicam 50 mg p.o. daily. 8. Skelaxin 800 mg p.o. b.i.d. 9. Protonix 40 mg p.o. b.i.d. 10.Flomax 180 mg p.o. daily. 11.Restasis 1 application both eyes q.12h. 12.Ventolin HFA 1-2 puffs q.6h p.r.n. 13.Augmentin 875 1 tab q.12h 8 tablets. 14.Prednisone taper rapid. Follow with Dr. Joshua on 08/28/17, follow up with Dr. Viveros in 1 week. MMODL / IJN: [id number] /
--- NOTE | 2017-09-03 16:31 | CDI ---
Last Revision, January 2017 Documentation Clarification Form Date: 09/03/17 From: MANSOOR Love Phone: If you have question, contact Elisha Brown [employer] at M-F 8:30 am to 6pm. Admit Date: 08/22/2017 1:07:00 PM Patient Name: Milton Erickson Visit Number: [id number] Discharge Date: 08/25/17 ATTENTION: The Clinical Documentation Specialists (CDI) and [facility] Coding Staff appreciate your assistance in clarifying documentation. Please respond to the clarification below the line at the bottom and electronically sign. The CDI & [facility] Coding staff will review the response and follow-up if needed. Please note: Queries are made part of the Legal Health Record. If you have any questions, please contact the author of this message via ITS. Dr. Yariel Dominguez Per the 08/[address] Bud Jimenez the patient has acute hypoxic respiratory failure. This diagnosis is not carried to the discharge summary. Please document if you think this diagnosis is ruled in, ruled out or documented in error. ____NO acute hypoxic respiratory failure MTDD
== END 2017-08-25 13:24 | disposition home or self-care (01) | DRG 178 ==
LOC: EC 10:45 → 4MS4W 13:07
PROVIDERS: ADMIT Hospitalist; ATTEND Hospitalist
DX: J15.6 Pneumonia due to other Gram-negative bacteria (principal); R04.2 Hemoptysis; K51.90 Ulcerative colitis, unspecified, without complications; E66.01 Morbid (severe) obesity due to excess calories; K21.9 Gastro-esophageal reflux disease without esophagitis; E78.5 Hyperlipidemia, unspecified; E87.6 Hypokalemia; G47.33 Obstructive sleep apnea (adult) (pediatric); N40.0 Benign prostatic hyperplasia without lower urinary tract symptoms; M19.91 Primary osteoarthritis, unspecified site; Z87.891 Personal history of nicotine dependence; Z68.38 Body mass index [BMI] 38.0-38.9, adult; Z83.3 Family history of diabetes mellitus; Z80.1 Family history of malignant neoplasm of trachea, bronchus and lung; Z80.0 Family history of malignant neoplasm of digestive organs; Z79.899 Other long term (current) drug therapy; Z99.89 Dependence on other enabling machines and devices
CPT/HCPCS: 36415; 71046; 71250; 80053; 82550; 82553; 83735; 83880; 84132; 84484; 85025; 85027; 85379; 85610; 85730; 87040; 93005; 94640; 94760; 96365; 96366; 96375; 99285

== ENCOUNTER → 2017-09-09 | Outpatient (CLI) | payer MEDICARE, OTHER ==
--- NOTE | 2017-09-09 10:54 | ECHOF ---
Referral Reason:I27.20 Pulmonary Hypertension, Unspecified MEASUREMENTS -------- HEIGHT: 172.7 cm WEIGHT: 110.2 kg BP: IVSd: 1.3 cm (0.6 - 1.1) LVIDd: 4.1 cm (3.9 - 5.3) LVPWd: 1.0 cm (0.6 - 1.1) IVSs: 1.3 cm LVIDs: 3.5 cm LVPWs: 1.4 cm LAESV Index (A-L): 23.05 ml/m Ao Diam: 3.5 cm (2.0 - 3.7) AV Cusp: 2.0 cm (1.5 - 2.6) LA Diam: 4.0 cm (2.7 - 3.8) MV EXCURSION: 21.388 mm (> 18.000) MV EF SLOPE: 85 mm/s (70 - 150) EPSS: 0.6 cm MV E Mitchell: 0.60 m/s MV DecT: 238 ms MV A Mitchell: 0.96 m/s MV E/A Ratio: 0.62 RAP: 5.00 mmHg RVSP: 11.51 mmHg FINDINGS -------- Sinus rhythm. This was a technically adequate study. The left ventricular size is normal. There is mild concentric left ventricular hypertrophy. Overa ll left ventricular systolic function is low-normal with, an EF between 50 - 55 %. The right ventricle is normal in size. The left atrial size is normal. The right atrial size is normal. There is mild aortic valve sclerosis. There is no evidence of aortic regurgitation. Mild mitral annular calcification present. Mild mitral regurgitation is present. Mild tricuspid regurgitation present. There is no evidence of pulmonary hypertension. The right v entricular systolic pressure, as measured by Doppler, is 11.51mmHg. There is no pulmonic regurgitation present. The aortic root size is normal. There is no pericardial effusion. CONCLUSIONS -------- 1. The left ventricular size is normal. 2. There is mild concentric left ventricular hypertrophy. 3. Overall left ventricular systolic function is low-normal with, an EF between 50 - 55 %. 4. The right ventricle is normal in size. 5. The left atrial size is normal. 6. The right atrial size is normal. 7. There is mild aortic valve sclerosis. 8. Mild mitral annular calcification present. 9. Mild mitral regurgitation is present. 10. Mild tricuspid regurgitation present. 11. There is no evidence of pulmonary hypertension. 12. The right ventricular systolic pressure, as measured by Doppler, is 11.51mmHg. 13. There is no pulmonic regurgitation present. 14. The aortic root size is normal. 15. There is no pericardial effusion. LATHER APPRENTICE: Genia Gruber RDCS
== END | disposition home or self-care (01) ==
LOC: RADECHMAIN 08:07
PROVIDERS: ATTEND Family Medicine
DX: I08.3 Combined rheumatic disorders of mitral, aortic and tricuspid valves (principal); I27.20 Pulmonary hypertension, unspecified
CPT/HCPCS: 93306